=== PATIENT | female | born 1960 | race Caucasian/White ===

== ENCOUNTER 2016-09-05 05:01 | Emergency (ER) | payer OTHER ==
[2016-09-05] MEDS ORDERED: Sodium Chloride 0.9% 500 ML ONE (05:12)
[2016-09-05 05:39] LABS: #Basophils 0.1 thou/uL (0.0-0.2); #Eosinphils 0.1 thou/uL (0.0-0.7); #Lymphocytes 1.2 thou/uL (1.20-3.40); #Monocytes 0.7 thou/uL (0.11-0.59); #Neutrophils 8.2 thou/uL (1.40-6.50); %Basophils 1.2 % (0.0-1.0); %Lymphocytes 11.3 % (21.0-51.0); %Monocytes 6.8 % (0.0-10.0); Hematocrit 42.3 % (36.0-47.0); Mean Platelet Volume 6.5 fL (7.4-10.4); Red Blood Cell (RBC) Count 4.78 mill/uL (4.20-5.40); White Blood Cell (WBC) Count 10.3 thou/uL (4.8-10.8)
[2016-09-05] MEDS ORDERED: Ondansetron HCl/PF 4 MG/2 ML Vial ONE (05:42)
[2016-09-05] MEDS ORDERED: Ciprofloxacin Lactate/D5W 400 mg/200 ml Premix ONE (05:42)
[2016-09-05] MEDS ORDERED: metroNIDAZOLE 500 MG/100 ML BAG ONE (05:43)
[2016-09-05 05:53] LABS: ALT (SGPT) 20 U/L (0-55); AST (SGOT) 19 U/L (5-34); Alkaline Phosphatase 74 U/L (40-150); Anion Gap 13 mmol/L (10-20); BUN (Urea Nitrogen) 8 mg/dL (9.8-20.1); Calc. Creatinine Clearance 0 mL/min (70-130); Calcium 9.2 mg/dL (7.8-10.44); Carbon Dioxide 22 mmol/L (22-29); Chloride 108 mmol/L (98-107); Estimated GFR-MDRD 80; Lipase 17 U/L (8-78); Protein, Total 7.2 g/dL (6.0-8.3)
[2016-09-05 06:02] LABS: Bilirubin, Total 0.7 mg/dL (0.2-1.2)
--- NOTE | 2016-09-05 08:06 | ERRECORD ---
[facility] EMERGENCY RECORD HPI ABDOMINAL PAIN (05:43 BPIC) CHIEF COMPLAINTS: Patient presents for evaluation of abdominal pain. HISTORIAN: History provided by patient, pt with hx of diverticulitis, latest flare up in July who has been having diarrhea, llq abdominal pain and nausea similar to her typical diverticulitis. she had a ct scan showing uncomplicated diverticulitis early July and was placed on abx. she put herself on a liquid diet since yesterday, but pain has continued to worsen. denies fever. pain is sharp no radiation and is similar to prior episodes. ROS (05:45 BPIC) CONSTITUTIONAL: Negative constitutional review of systems, Historian denies chills, denies fever. EYES: Negative eye review of systems. ENT: Negative ears, nose, throat review of systems. CARDIOVASCULAR: Negative cardiovascular review of systems, Historian denies chest pain, denies palpitations. RESPIRATORY: Negative respiratory review of systems, Historian denies cough, denies shortness of breath. GI: Historian reports abdominal pain, reports diarrhea, reports nausea. MUSCULOSKELETAL: Negative musculoskeletal review of systems. SKIN: Negative skin review of systems. NEUROLOGIC: Negative neurologic review of systems. ENDOCRINE: Negative endocrine review of systems. HEMO/LYMPHATIC: Normal hematologic/lymphatic system review. PSYCHIATRIC: Negative psychiatric review of systems. NOTES: All other ROS is negative except as listed in HPI. PAST MEDICAL HISTORY MEDICAL HISTORY: Past medical history includes endocrine disease, hypothyroidism, Flu vaccine not up to date, Tetanus not up to date, Pneumococcal vaccine not up to date, Notes: Chronic back pain, Past medical history includes history of hyperlipidemia. (05:10 EPIE) FEMALE SURGICAL HISTORY: Surgical history of carpal tunnel surgery, D AND C, Surgical history of appendectomy, Surgical history of tonsillectomy, back sx. (05:10 EPIE) PSYCHIATRIC HISTORY: No previous psychiatric history. (05:10 EPIE) SOCIAL HISTORY: Lives at home, with family, Patient denies alcohol use, Patient denies drug use, Patient has no smoking history. (05:10 EPIE) NOTES: I have reviewed and agree with the PMH/PSxH/FamHx/SocHx obtained by the nurse. (05:45 BPIC) KNOWN ALLERGIES No Known Drug Allergies &a-1R&a+25V*p+0X*y8697H*c202B*c15G*c2P*p-0X&a-25V&a+1R Name: Stephania Gurrola : 1960 F55 MedRec: [id number] AcctNum: [id number] Prepared: Eliz Sep 05, 2016 08:01 by Interface Page 1 of 4 pMD [facility] EMERGENCY RECORD CURRENT MEDICATIONS levothyroxine: TABLET : Strength - 75 mcg : ORAL Patient Dose: 50 mcg Oral once a day. (05:08 EPIE) omeprazole: CAPSULE,DELAYED RELEASE (ENTERIC COATED) : Strength - 40 mg : ORAL Patient Dose: UNK. (05:09 EPIE) VITAL SIGNS VITAL SIGNS: BP: 149/71, Pulse: 92, Resp: 20 (Non-Labored), Pain: 8, O2 sat: 96 on Room Air, Time: 09/05/2016 05:11. (05:11 EPIE) Temp: 98.1 (Oral), Time: 09/05/2016 05:29. (05:29 EPIE) BP: 134/63, Pulse: 85, Resp: 20 (Non-Labored), O2 sat: 97 on Room Air, Time: 09/05/2016 05:30. (05:30 EPIE) BP: 126/79, Pulse: 79, Resp: 20 (Non-Labored), O2 sat: 95 on Room Air, Time: 09/05/2016 06:00. (06:00 EPIE) Pain: 1, Time: 09/05/2016 06:21. (06:21 EPIE) BP: 133/70, Pulse: 76, Resp: 18 (Non-Labored), Pain: 1, O2 sat: 95 on Room Air, Time: 09/05/2016 06:30. (06:30 EPIE) PHYSICAL EXAM (05:45 BPIC) CONSTITUTIONAL: Vital signs reviewed, Patient appears non toxic, Patient alert and oriented to person, place and time, Pt is in no apparent distress. HEAD: Head exam included findings of head atraumatic, normocephalic. EYES: Eye exam included findings of eyelids normal to inspection, Pupils equally round and reactive to light, Extraocular muscles intact. ENT: ENT exam normal, Nose exam normal, no nasal deformity, no bleeding from nares, Pharynx exam normal, Mouth exam normal, mucous membranes moist. NECK: Neck exam included findings of normal range of motion, Trachea midline. RESPIRATORY CHEST: Respiratory and chest exam normal, Breath sounds clear, No wheezing, No rales, Chest exam included findings of chest movement symmetrical, Chest expansion equal. CARDIOVASCULAR: Cardiovascular assessment normal, Cardiovascular exam included findings of heart rate regular rate and rhythm, Heart sounds normal. ABDOMEN FEMALE: Abdominal exam included findings of abdomen moderately tender in llq and mildly tender in suprapubic area, Bowel sounds normal, no mass, no pulsatile masses, no peritoneal signs. BACK: Back exam included findings of normal inspection, range of motion normal, no costovertebral angle tenderness. UPPER EXTREMITY: Upper extremity exam included findings of inspection normal, Range of motion normal. LOWER EXTREMITY: Lower extremity exam included findings of &a-1R&a+25V*p+0X*y4748Z*c202B*c15G*c2P*p-0X&a-25V&a+1R Name: Stephania Gurrola : 1960 F55 MedRec: [id number] AcctNum: [id number] Prepared: Eliz Sep 05, 2016 08:01 by Interface Page 2 of 4 pMD [facility] EMERGENCY RECORD inspection normal, Range of motion normal. NEURO: Neuro exam findings include patient oriented to person, place and time, Speech normal, no focal motor deficits, no focal sensory deficits. SKIN: Skin exam included findings of skin warm, dry, and normal in color. LYMPHATIC: Lymphatic exam normal. PSYCHIATRIC: Psychiatric exam included findings of patient oriented to person place and time, Normal affect. MEDICATION ADMINISTRATION SUMMARY Drug Name: Flagyl RTU intravenous piggyback, Dose Ordered: 500 mg, Route: IV Piggy Back, Status: Given, Time: 06:55 09/05/2016, Drug Name: Cipro I.V., Dose Ordered: 400 mg, Route: IV Fluid Infusion, Status: Given, Time: 05:51 09/05/2016, Drug Name: morphine injection, Dose Ordered: 4 mg, Route: IV Push, Status: Given, Time: 05:49 09/05/2016, Drug Name: Zofran intravenous, Dose Ordered: 4 mg, Route: IV Push, Status: Given, Time: 05:47 09/05/2016, Drug Name: *Normal Saline, Dose Ordered: 500 mL, Route: IV Fluid Infusion, Status: Given, Time: 05:28 09/05/2016, *Additional information available in notes, Detailed record available in Medication Service section. PROBLEM LIST No recorded problems DIAGNOSIS (06:55 BPIC) FINAL: PRIMARY: diverticulitits, ADDITIONAL: Abdominal Pain. PRESCRIPTION Cipro tablet: TABLET : 500 mg : ORAL : Quantity: 500 Unit: mg Route: ORAL Schedule: 2 times a day Dispense: 14 Unit: tab(s) May substitute. Refills: No Refills . (06:55 BPIC) NOTES: No Refills. (06:55 BPIC) Flagyl: TABLET : 500 mg : ORAL : Quantity: 500 Unit: mg Route: ORAL Schedule: 2 times a day Dispense: 14 Unit: tab(s) May substitute. Refills: No Refills . (06:55 BPIC) NOTES: No Refills. (06:55 BPIC) traMADol: TABLET : 50 mg : ORAL : Quantity: 50 Unit: mg Route: ORAL Schedule: every 6 hours PRN Dispense: 20 Unit: tab(s) May substitute. Refills: No Refills . (06:55 BPIC) NOTES: ^s=No Refills No Refills. (06:55 BPIC) Zofran ODT: TABLET,DISINTEGRATING : 4 mg : ORAL : Quantity: 1 Unit: tab(s) Route: ORAL Schedule: every 8 hours PRN Dispense: &a-1R&a+25V*p+0X*d8227L*c202B*c15G*c2P*p-0X&a-25V&a+1R Name: Stephania Gurrola Nicholas : 1960 F55 MedRec: [id number] AcctNum: [id number] Prepared: Eliz Sep 05, 2016 08:01 by Interface Page 3 of 4 pMD [facility] EMERGENCY RECORD 15 Unit: tab(s) May substitute. Refills: No Refills . (07:49 [facility]) NOTES: No Refills. (07:49 [facility]) DISPOSITION PATIENT: Disposition Type: Discharge, Disposition: *Discharge Home, Condition: Good. (06:55 [facility]) Patient left the department. (07:59 [facility]) [place]: [facility]=MD Aaron, Jus [facility]=NIGEL Fields, Mile [facility]=MD Maryanne, Cate [facility]=NIGEL Luciano, Norma &a-1R&a+25V*p+0X*q2772P*c202B*c15G*c2P*p-0X&a-25V&a+1R Name: Stephania Gurrola Nicholas : 1960 F55 MedRec: [id number] AcctNum: [id number] Prepared: Eliz Sep 05, 2016 08:01 by Interface Page 4 of 4 pMD MTDD
--- NOTE | 2016-09-05 08:09 | PICIS ---
[facility] EMERGENCY RECORD TRIAGE (FriSep 05, 2016 05:06 EPIE) PATIENT: NAME: Stephania Gurrola, AGE: 55, GENDER: female, : Fri1960, TIME OF GREET: FriSep 05, 2016 05:02, PREFERRED LANGUAGE: Yoruba, ETHNICITY: Not or , ECODE BILLING MAP: [facility], SSN: [id number], Zip Code: [address], KG WEIGHT: 56.7 (est.), PHONE: , , , PERSON ID: [id number], PCP: MD Donaldson Jacques. (FriSep 05, 2016 05:06 EPIE) TRIAGE NOTES: Pt states that she thinks she has diverticulitis. Pt reports bad cramps. Reports diarrhea yesterday but not today. (FriSep 05, 2016 05:06 EPIE) COMPLAINT: DIVERTICULITIS FLARE UP. (FriSep 05, 2016 05:06 EPIE) ADMISSION: URGENCY: 3 Urgent, ADMISSION SOURCE: Home, TRANSPORT: CAR, BED: TRIAGE. (FriSep 05, 2016 05:06 EPIE) TRIAGE SCREENING: Patient denies suicidal ideation, Patient denies presence of domestic violence. (05:10 EPIE) TREATMENTS IN PROGRESS: Treatments given Prehospital: none. (05:10 EPIE) PROVIDERS: TRIAGE NURSE: Mile Fields RN. (FriSep 05, 2016 05:06 EPIE) PREVIOUS VISIT ALLERGIES: No Known Drug Allergies. (FriSep 05, 2016 05:06 EPIE) No Known Drug Allergies. (05:10 EPIE) KNOWN ALLERGIES No Known Drug Allergies CURRENT MEDICATIONS levothyroxine: TABLET : Strength - 75 mcg : ORAL Patient Dose: 50 mcg Oral once a day. (05:08 EPIE) omeprazole: CAPSULE,DELAYED RELEASE (ENTERIC COATED) : Strength - 40 mg : ORAL Patient Dose: UNK. (05:09 EPIE) VITAL SIGNS VITAL SIGNS: BP: 149/71, Pulse: 92, Resp: 20 (Non-Labored), Pain: 8, O2 sat: 96 on Room Air, Time: 09/05/2016 05:11. (05:11 EPIE) Temp: 98.1 (Oral), Time: 09/05/2016 05:29. (05:29 EPIE) BP: 134/63, Pulse: 85, Resp: 20 (Non-Labored), O2 sat: 97 on Room Air, Time: 09/05/2016 05:30. (05:30 EPIE) BP: 126/79, Pulse: 79, Resp: 20 (Non-Labored), O2 sat: 95 on Room Air, Time: 09/05/2016 06:00. (06:00 EPIE) Pain: 1, Time: 09/05/2016 06:21. (06:21 EPIE) BP: 133/70, Pulse: 76, Resp: 18 (Non-Labored), Pain: 1, O2 sat: 95 on Room Air, Time: 09/05/2016 06:30. (06:30 EPIE) NURSING ASSESSMENT: ABDOMEN (05:31 EPIE) CONSTITUTIONAL: Patient arrives ambulatory, Gait steady, History &a-1R&a+25V*p+0X*e2198G*c202B*c15G*c2P*p-0X&a-25V&a+1R Name: Stephania Gurrola : 1960 F55 MedRec: [id number] AcctNum: [id number] Prepared: Eliz Sep 05, 2016 08:07 by Interface Page 1 of 9 pMD [facility] EMERGENCY RECORD obtained from patient, Patient appears comfortable, Patient cooperative, Patient alert, Oriented to person, place and time, Skin warm, Skin dry, Skin normal in color, Mucous membranes pink, Mucous membranes moist, Patient is well-groomed, Pt states that she thinks she has diverticulitis. Pt reports bad cramps. Reports diarrhea yesterday but not today. PAIN: aching pain, cramping pain, diffusely, Onset of pain 09/04/2016, intermittent, on a scale 0-10 patient rates pain as 8. ABDOMEN: Abdomen assessment findings include abdomen symmetrical, Abdomen soft, tender, diffusely, Associated with nausea, no associated vomiting, Associated with diarrhea, Number of episodes: reports diarrhea yesterday. GENITOURINARY FEMALE: no associated urinary complaints. NURSING ASSESSMENT: FALL RISK (05:36 EPIE) FALL RISK: Fall risk assessment findings include: no history of falls (0), No bed rest greater than 2 days (0), No use of level of consciousness altering agents with mentation or cognitive changes (0), No change in blood pressure (0), No sensory deficits (0), No impaired mobility (0), No neurologic diagnosis (0), No elimination problems (0), No confusion (0), Total score 0, No risk for fall. NURSING ASSESSMENT: SKIN (05:36 EPIE) SKIN: Skin assessment findings include skin warm, Skin dry, Skin normal in color. NURSING PROCEDURE: DISCHARGE NOTE (07:56 [facility]) DISCHARGE: Patient discharged to home, ambulating without assistance, family driving, accompanied by //partner, Discharge instructions given to patient, Simple or moderate discharge teaching performed, by NIGEL Green, Patient treated and evaluated by physician. BELONGINGS: Belongings and valuables with patient upon arrival to the Emergency Department include:, Belongings and valuables with patient at time of discharge include:. SAFETY: Side rails up, Cart/Stretcher in lowest position, Family at bedside, Call light within reach, Hospital ID band on. NURSING PROCEDURE: IV PATIENT IDENITIFIER: Patient actively involved in identification process, Patient's identity verified by patient stating name, Patient's identity verified by hospital ID bracelet. (05:20 EPIE) IV SITE 1: IV established, to the left antecubital, using a 20 gauge catheter, in one attempt, IV site prepped with chloroprep, Saline lock established, Flushed with normal saline (mls): 10, Labs drawn at time of placement, labeled in the presence of the patient &a-1R&a+25V*p+0X*k8834M*c202B*c15G*c2P*p-0X&a-25V&a+1R Name: Stephania Gurrola : 1960 F55 MedRec: [id number] AcctNum: [id number] Prepared: [facility] Sep 05, 2016 08:07 by Interface Page 2 of 9 pMD [facility] EMERGENCY RECORD and sent to lab. (05:20 EPIE) FOLLOW-UP SITE 1: After procedure, no drainage at IV site, After procedure, no swelling at IV site, After procedure, no redness at IV site. (05:20 EPIE) After procedure, no drainage at IV site, After procedure, no swelling at IV site, After procedure, no redness at IV site, IV discontinued, due to patient being discharged, catheter intact. (07:56 [facility]) NURSING PROCEDURE: NURSE NOTES NURSES NOTES: Notes: Patient resting with RR even and unlabored. No new complaints at this time. IV fluids infusing. Warm blanket given for comfort. Awaiting lab results. (05:30 EPIE) Notes: Patient resting with RR even and unlabored. No new complaints at this time. IV antibiotic infusing. Lights dimmed for comfort. (05:54 EPIE) Notes: Patient resting withRR even and unlabored. No new complaints at this time. IV antibiotic infusing. Pt reports nausea has decreased and pain has decreased to a 1/10 at this time. (06:21 EPIE) Assistance offered to patient, Notes: iv infusing, aware will be discharged in an hour. (07:05 BDON) VITAL SIGNS: Pain: 1. (06:21 EPIE) ORDER DETAILS Order Name: CBC with Differential, Status: Active, Time: 05:08 09/05/2016, User: LEON, - Ordered for: MD Walker Bryan, - Entered by: NIGEL Fields, [facility] Sep 05, 2016 05:08, - Quantity: 1, Order Name: Comprehensive Metabolic Panel, Status: Active, Time: 05:08 09/05/2016, User: LEON, - Ordered for: MD Walker Bryan, - Entered by: NIGEL Fields, [facility] Sep 05, 2016 05:08, - Quantity: 1, Order Name: Lipase, Status: Active, Time: 05:08 09/05/2016, User: LEON, - Ordered for: MD Walker Bryan, - Entered by: NIGEL Fields, [facility] Sep 05, 2016 05:08, - Quantity: 1, Order Name: SALINE LOCK, Status: Done, Time: 05:27 09/05/2016, User: LEON, - Ordered for: MD Walker Bryan, - Entered by: NIGEL Fields, [facility] Sep 05, 2016 05:26, - Quantity: 1. MEDICATION ADMINISTRATION SUMMARY Drug Name: Ramón RTU intravenous piggyback, Dose Ordered: 500 mg, Route: IV Piggy Back, Status: Given, Time: 06:55 09/05/2016, Drug Name: Cipro I.V., Dose Ordered: 400 mg, Route: IV Fluid &a-1R&a+25V*p+0X*m3550L*c202B*c15G*c2P*p-0X&a-25V&a+1R Name: Stephania Gurrola : 1960 F55 MedRec: [id number] AcctNum: [id number] Prepared: Eliz Sep 05, 2016 08:07 by Interface Page 3 of 9 pMD [facility] EMERGENCY RECORD Infusion, Status: Given, Time: 05:51 09/05/2016, Drug Name: morphine injection, Dose Ordered: 4 mg, Route: IV Push, Status: Given, Time: 05:49 09/05/2016, Drug Name: Zofran intravenous, Dose Ordered: 4 mg, Route: IV Push, Status: Given, Time: 05:47 09/05/2016, Drug Name: *Normal Saline, Dose Ordered: 500 mL, Route: IV Fluid Infusion, Status: Given, Time: 05:28 09/05/2016, *Additional information available in notes, Detailed record available in Medication Service section. MEDICATION SERVICE Cipro I.V.: Order: Cipro I.V. (ciprofloxacin lactate) - Dose: 400 mg : IV Fluid Infusion Schedule: Now Ordered by: Jus Walker MD Entered by: Jus Walker MD [facility] Sep 05, 2016 05:41 , Acknowledged by: Mile Fields RN [facility] Sep 05, 2016 05:42 Documented as given by: Leeanna Wetzel RN [facility] Sep 05, 2016 05:51 Patient, Medication, Dose, Route and Time verified prior to administration. Amount given: 400 mg, IV SITE #1 IVPB or drip, initial infusion, Premixed, IVPB mixed in: Other, IVPB mixed in: 200 ml, via primary tubing, via pump tubing, via Buretrol, at 200 ml/hr, Catheter placement confirmed via flush prior to administration, IV site without signs or symptoms of infiltration during medication administration, No swelling during administration, No drainage during administration, IV flushed after administration, Correct patient, time, route, dose and medication confirmed prior to administration, Patient advised of actions and side-effects prior to administration, Allergies confirmed and medications reviewed prior to administration, Patient in position of comfort, Side rails up, Cart in lowest position. : Follow Up : Response assessment performed, No signs or symptoms of allergic reaction noted, _IV SITE #1:_, Medication infusion discontinued, on FriSep 05, 2016 06:51, Total infusion time IV site 1 1 hour, ., Total amount infused: 200ml, IV Line flushed after administration. (06:51 EPIE) morphine injection: Order: morphine injection (morphine sulfate) - Dose: 4 mg : IV Push Ordered by: Jus Walker MD Entered by: Jus Walker MD [facility] Sep 05, 2016 05:39 , Acknowledged by: Mile Fields RN [facility] Sep 05, 2016 05:40 Documented as given by: Leeanna Wetzel RN [facility] Sep 05, 2016 05:49 Patient, Medication, Dose, Route and Time verified prior to administration. Amount given: 4 mg, IV SITE #1 IVP, subsequent different medication, Slowly, Catheter placement confirmed via flush prior to administration, IV site without signs or symptoms of infiltration during medication administration, No swelling during administration, No drainage during administration, IV flushed after administration, &a-1R&a+25V*p+0X*g3941B*c202B*c15G*c2P*p-0X&a-25V&a+1R Name: Stephania Gurrola : 1960 F55 MedRec: [id number] AcctNum: [id number] Prepared: FriSep 05, 2016 08:07 by Interface Page 4 of 9 pMD [facility] EMERGENCY RECORD Correct patient, time, route, dose and medication confirmed prior to administration, Patient advised of actions and side-effects prior to administration, Allergies confirmed and medications reviewed prior to administration, Patient in position of comfort, Side rails up, Cart in lowest position. Normal Saline: Order: Normal Saline (0.9 % sodium chloride) - Dose: 500 mL : IV Fluid Infusion Schedule: Now Notes: Read back and verified, Verbal Order Ordered by: Jus Walker MD Entered by: Mile Fields RN [facility] Sep 05, 2016 05:28 Documented as given by: Mile Fields RN [facility] Sep 05, 2016 05:28 Patient, Medication, Dose, Route and Time verified prior to administration. Amount given: 500ml, IV SITE #1 IV fluids established for hydration, IV SITE #1 into left antecubital, IV SITE #1 1st bag hung, amount 500ml hung, IV SITE #1 bolus of 500 ml established, via primary tubing, Catheter placement confirmed via flush prior to administration, IV site without signs or symptoms of infiltration during medication administration, No swelling during administration, No drainage during administration, IV flushed after administration, Correct patient, time, route, dose and medication confirmed prior to administration, Patient advised of actions and side-effects prior to administration, Allergies confirmed and medications reviewed prior to administration. : Follow Up : Response assessment performed, No signs or symptoms of allergic reaction noted, _IV SITE #1:_, IV fluid infusion discontinued, on Eliz Sep 05, 2016 05:55, 30 minutes, ., Total amount infused: 500ml, IV Line flushed after administration. (05:55 EPIE) Zofran intravenous: Order: Zofran intravenous (ondansetron HCl) - Dose: 4 mg : IV Push Schedule: Now Ordered by: Jus Walker MD Entered by: Jus Walker MD [facility] Sep 05, 2016 05:42 , Acknowledged by: Mile Fields RN [facility] Sep 05, 2016 05:43 Documented as given by: Leeanna Wetzel RN [facility] Sep 05, 2016 05:47 Patient, Medication, Dose, Route and Time verified prior to administration. Amount given: 4 mg, IV SITE #1 IVP, initial medication, Slowly, Catheter placement confirmed via flush prior to administration, IV site without signs or symptoms of infiltration during medication administration, No swelling during administration, No drainage during administration, IV flushed after administration, Correct patient, time, route, dose and medication confirmed prior to administration, Patient advised of actions and side-effects prior to administration, Allergies confirmed and medications reviewed prior to administration, Patient in position of comfort, Side rails up, Cart in lowest position. &a-1R&a+25V*p+0X*v7137N*c202B*c15G*c2P*p-0X&a-25V&a+1R Name: Stephania Gurrola : 1960 F55 MedRec: [id number] AcctNum: [id number] Prepared: Eliz Sep 05, 2016 08:07 by Interface Page 5 of 9 pMD [facility] EMERGENCY RECORD HPI ABDOMINAL PAIN (05:43 BPIC) CHIEF COMPLAINTS: Patient presents for evaluation of abdominal pain. HISTORIAN: History provided by patient, pt with hx of diverticulitis, latest flare up in July who has been having diarrhea, llq abdominal pain and nausea similar to her typical diverticulitis. she had a ct scan showing uncomplicated diverticulitis early July and was placed on abx. she put herself on a liquid diet since yesterday, but pain has continued to worsen. denies fever. pain is sharp no radiation and is similar to prior episodes. ROS (05:45 BP[facility]) CONSTITUTIONAL: Negative constitutional review of systems, Historian denies chills, denies fever. EYES: Negative eye review of systems. ENT: Negative ears, nose, throat review of systems. CARDIOVASCULAR: Negative cardiovascular review of systems, Historian denies chest pain, denies palpitations. RESPIRATORY: Negative respiratory review of systems, Historian denies cough, denies shortness of breath. GI: Historian reports abdominal pain, reports diarrhea, reports nausea. MUSCULOSKELETAL: Negative musculoskeletal review of systems. SKIN: Negative skin review of systems. NEUROLOGIC: Negative neurologic review of systems. ENDOCRINE: Negative endocrine review of systems. HEMO/LYMPHATIC: Normal hematologic/lymphatic system review. PSYCHIATRIC: Negative psychiatric review of systems. NOTES: All other ROS is negative except as listed in HPI. PAST MEDICAL HISTORY MEDICAL HISTORY: Past medical history includes endocrine disease, hypothyroidism, Flu vaccine not up to date, Tetanus not up to date, Pneumococcal vaccine not up to date, Notes: Chronic back pain, Past medical history includes history of hyperlipidemia. (05:10 EPIE) FEMALE SURGICAL HISTORY: Surgical history of carpal tunnel surgery, D AND C, Surgical history of appendectomy, Surgical history of tonsillectomy, back sx. (05:10 EPIE) PSYCHIATRIC HISTORY: No previous psychiatric history. (05:10 EPIE) SOCIAL HISTORY: Lives at home, with family, Patient denies alcohol use, Patient denies drug use, Patient has no smoking history. (05:10 EPIE) NOTES: I have reviewed and agree with the PMH/PSxH/FamHx/SocHx obtained by the nurse. (05:45 BPIC) PHYSICAL EXAM (05:45 [facility]) CONSTITUTIONAL: Vital signs reviewed, Patient appears non toxic, &a-1R&a+25V*p+0X*p6135D*c202B*c15G*c2P*p-0X&a-25V&a+1R Name: Stephania Gurrola : 1960 F55 MedRec: [id number] AcctNum: [id number] Prepared: Eliz Sep 05, 2016 08:07 by Interface Page 6 of 9 pMD [facility] EMERGENCY RECORD Patient alert and oriented to person, place and time, Pt is in no apparent distress. HEAD: Head exam included findings of head atraumatic, normocephalic. EYES: Eye exam included findings of eyelids normal to inspection, Pupils equally round and reactive to light, Extraocular muscles intact. ENT: ENT exam normal, Nose exam normal, no nasal deformity, no bleeding from nares, Pharynx exam normal, Mouth exam normal, mucous membranes moist. NECK: Neck exam included findings of normal range of motion, Trachea midline. RESPIRATORY CHEST: Respiratory and chest exam normal, Breath sounds clear, No wheezing, No rales, Chest exam included findings of chest movement symmetrical, Chest expansion equal. CARDIOVASCULAR: Cardiovascular assessment normal, Cardiovascular exam included findings of heart rate regular rate and rhythm, Heart sounds normal. ABDOMEN FEMALE: Abdominal exam included findings of abdomen moderately tender in llq and mildly tender in suprapubic area, Bowel sounds normal, no mass, no pulsatile masses, no peritoneal signs. BACK: Back exam included findings of normal inspection, range of motion normal, no costovertebral angle tenderness. UPPER EXTREMITY: Upper extremity exam included findings of inspection normal, Range of motion normal. LOWER EXTREMITY: Lower extremity exam included findings of inspection normal, Range of motion normal. NEURO: Neuro exam findings include patient oriented to person, place and time, Speech normal, no focal motor deficits, no focal sensory deficits. SKIN: Skin exam included findings of skin warm, dry, and normal in color. LYMPHATIC: Lymphatic exam normal. PSYCHIATRIC: Psychiatric exam included findings of patient oriented to person place and time, Normal affect. EVENTS TRANSFER: Triage to Emergency Triage. (FriSep 05, 2016 05:06 EPIE) Emergency Triage to Emergency Room -03. (05:06 EPIE) Removed from Emergency Emergency Room -03. (07:59 [facility]) PROBLEM LIST No recorded problems DIAGNOSIS (06:55 [facility]) FINAL: PRIMARY: diverticulitits, ADDITIONAL: Abdominal Pain. &a-1R&a+25V*p+0X*e8444R*c202B*c15G*c2P*p-0X&a-25V&a+1R Name: Stephania Gurrola : 1960 F55 MedRec: [id number] AcctNum: [id number] Prepared: Eliz Sep 05, 2016 08:07 by Interface Page 7 of 9 [facility] EMERGENCY RECORD DISPOSITION PATIENT: Disposition Type: Discharge, Disposition: *Discharge Home, Condition: Good. (06:55 BPIC) Patient left the department. (07:59 [facility]) INSTRUCTION (06:55 [facility]) DISCHARGE: DIVERTICULITIS. FOLLOWUP: MD Donaldson Jacques, Family Practice, [facility], [address] [place] [id number], . SPECIAL: Thank you for choosing [facility] Emergency Department for your care today! Please follow up with your primary doctor in the next 2-3 days. Return to the emergency department with any other worsening or emergent symptoms. God bless you!. PRESCRIPTION Cipro tablet: TABLET : 500 mg : ORAL : Quantity: 500 Unit: mg Route: ORAL Schedule: 2 times a day Dispense: 14 Unit: tab(s) May substitute. Refills: No Refills . (06:55 BP[facility]) NOTES: No Refills. (06:55 BP[facility]) Flagyl: TABLET : 500 mg : ORAL : Quantity: 500 Unit: mg Route: ORAL Schedule: 2 times a day Dispense: 14 Unit: tab(s) May substitute. Refills: No Refills . (06:55 BP[facility]) NOTES: No Refills. (06:55 [facility]) traMADol: TABLET : 50 mg : ORAL : Quantity: 50 Unit: mg Route: ORAL Schedule: every 6 hours PRN Dispense: 20 Unit: tab(s) May substitute. Refills: No Refills . (06:55 BP[facility]) NOTES: ^s=No Refills No Refills. (06:55 BP[facility]) Zofran ODT: TABLET,DISINTEGRATING : 4 mg : ORAL : Quantity: 1 Unit: tab(s) Route: ORAL Schedule: every 8 hours PRN Dispense: 15 Unit: tab(s) May substitute. Refills: No Refills . (07:49 [facility]) NOTES: No Refills. (07:49 [facility]) IMAGING (07:58 [facility]) *DISCHARGE INSTRUCTIONS RECEIPT: Image captured from scanner. DISCHARGE INSTRUCTIONS RECEIPT 2: Image captured from scanner. *SUPPLY CHARGE SHEET: Image captured from scanner. RESULTS LABORATORY: CBC with Differential Collection DT: FriSep 05, 2016 05:31, White Blood Cell (WBC) Count 10.3 thou/uL, Range (4.8-10.8), Red Blood Cell (RBC) Count 4.78 mill/uL, Range (4.20-5.40), Hemoglobin 14.5 g/dL, Range (12.0-16.0), Hematocrit 42.3 %, Range (36.0-47.0), Mean Corpuscular Volume 88.5 fl, Range (81.0-99.0), &a-1R&a+25V*p+0X*g8305I*c202B*c15G*c2P*p-0X&a-25V&a+1R Name: Stephania Gurrola : 1960 F55 MedRec: [id number] AcctNum: [id number] Prepared: FriSep 05, 2016 08:07 by Interface Page 8 of 9 pMD [facility] EMERGENCY RECORD Mean Corpuscular Hemoglobin 30.3 pg, Range (27.0-31.0), Mean Corpuscular HGB CONC 34.3 g/dL, Range (32.0-36.0), *RBC Distribution Width 11.1 - L %, Range (11.5-14.5), Platelet Count 301 thou/uL, Range (130-400), *Mean Platelet Volume 6.5 - L fL, Range (7.4-10.4), *%Neutrophils 79.8 - H %, Range (42.0-75.0), *%Lymphocytes 11.3 - L %, Range (21.0-51.0), %Monocytes 6.8 %, Range (0.0-10.0), %Eosinophils 1.0 %, Range (0.0-10.0), *%Basophils 1.2 - H %, Range (0.0-1.0), *#Neutrophils 8.2 - H thou/uL, Range (1.40-6.50), #Lymphocytes 1.2 thou/uL, Range (1.20-3.40), *#Monocytes 0.7 - H thou/uL, Range (0.11-0.59), #Eosinphils 0.1 thou/uL, Range (0.0-0.7), #Basophils 0.1 thou/uL, Range (0.0-0.2). (05:43 [facility]) Lipase Collection DT: FriSep 05, 2016 05:31, Lipase 17 U/L, Range (8-78). (06:54 BP[facility]) Comprehensive Metabolic Panel Collection DT: FriSep 05, 2016 05:31, Sodium 139 mmol/L, Range (136-145), Potassium 4.0 mmol/L, Range (3.5-5.1), *Chloride 108 - H mmol/L, Range (98-107), Carbon Dioxide 22 mmol/L, Range (22-29), Anion Gap 13 mmol/L, Range (10-20), *BUN (Urea Nitrogen) 8 - L mg/dL, Range (9.8-20.1), Creatinine 0.76 mg/dL, Range (0.6-1.1), Estimated GFR-MDRD 80 , Reference Range for Estimated GFR: Greater than 90, mL/min/1.73 m2 NOTE: The MDRD equation has not been validated for use, with the elderly (over 70 years of age), women, patients with, serious comorbid condition or persons with extremes of body size, muscle, mass, or nutritional status. , *Glucose 106 - H mg/dL, Range (70-105), Calcium 9.2 mg/dL, Range (7.8-10.44), Bilirubin, Total 0.7 mg/dL, Range (0.2-1.2), Protein, Total 7.2 g/dL, Range (6.0-8.3), NOTE: Plasma values are generally 0.3 to 0.5 g/dL higher than serum values, due to the presence of fibrinogen. , Albumin 4.2 g/dL, Range (3.5-5.0), Globulin 3.0 g/dL, Range (2.4-3.5), Alb/Glob Ratio 1.4 g/dL, Range (1.2-2.2), Alkaline Phosphatase 74 U/L, Range (40-150), AST (SGOT) 19 U/L, Range (5-34), ALT (SGPT) 20 U/L, Range (0-55). (06:54 [facility]) Sandoval: BDON=NIGEL Corbett, Lindsey BPIC=MD Aaron, Jus EPIE=NIGEL Fields, Mile DICKERSON=MD Maryanne, Cate [facility]=NIGEL Luciano, Norma &a-1R&a+25V*p+0X*k8464Z*c202B*c15G*c2P*p-0X&a-25V&a+1R Name: Stephania Gurrola : 1960 F55 MedRec: [id number] AcctNum: [id number] Prepared: Eliz Sep 05, 2016 08:07 by Interface Page 9 of 9 pMD MTDD
== END 2016-09-05 07:55 | disposition home or self-care (01) ==
LOC: NAV ERS 05:01
DX: K57.92 Diverticulitis of intestine, part unspecified, without perforation or abscess without bleeding (principal); E03.9 Hypothyroidism, unspecified; E78.5 Hyperlipidemia, unspecified
CPT/HCPCS: 80053; 83690; 85025; 96365; 96367; 96375; J0744; J2270; J2405; J7050

== ENCOUNTER 2019-02-22 13:00 | Emergency (ER) | payer OTHER ==
[2019-02-22] MEDS ORDERED: Ketorolac Tromethamine 60 MG/2 ML VIAL ONE (13:49)
--- NOTE | 2019-02-22 13:58 | ULT ---
Venous duplex sonogram right lower extremity HISTORY: Right leg pain and edema. FINDINGS: The right common femoral vein and greater saphenous junction were evaluated along with the femoral, deep femoral, popliteal, and posterior tibial veins. There is good color and spectral Doppler flow, compression, and augmentation. IMPRESSION: No sonographic evidence of DVT within the right lower extremity.
== END 2019-02-22 14:09 | disposition home or self-care (01) ==
LOC: NAV ERS 13:00
DX: M79.661 Pain in right lower leg (principal); E03.9 Hypothyroidism, unspecified; E78.5 Hyperlipidemia, unspecified; Z87.891 Personal history of nicotine dependence; Z79.899 Other long term (current) drug therapy
CPT/HCPCS: 96372; J1885

== ENCOUNTER 2024-04-29 08:00 | Emergency (ER) | payer OTHER ==
[2024-04-29] MEDS ORDERED: Sodium Chloride 0.9% 1,000 ML ONE (08:07)
[2024-04-29] MEDS ORDERED: Ondansetron PF 4 MG/2 ML Vial ONE (08:07)
[2024-04-29] MEDS ORDERED: fentaNYL 50 mcg/mL 1 mL Vial ONE ×2 (08:07→08:47)
[2024-04-29 08:15] LABS: #Basophils 0.1 thou/uL (0.0-0.2); #Eosinphils 0.4 thou/uL (0.0-0.7); #Lymphocytes 2.1 thou/uL (1.20-3.40); #Monocytes 0.6 thou/uL (0.11-0.59); #Neutrophils 3.2 thou/uL (1.40-6.50); %Basophils 2.3 % (0.0-1.0); %Eosinophils 5.9 % (0.0-10.0); %Lymphocytes 33.5 % (21.0-51.0); %Monocytes 8.7 % (0.0-10.0); %Neutrophils 49.6 % (42.0-75.0); Hematocrit 43.2 % (36.0-47.0); Hemoglobin 14.2 g/dL (12.0-16.0); Mean Corpuscular HGB CONC 32.9 g/dL (32.0-36.0); Mean Corpuscular Hemoglobin 29.5 pg (27.0-31.0); Mean Corpuscular Volume 89.6 fl (78.0-98.0); Mean Platelet Volume 6.1 fL (7.4-10.4); Platelet Count 330 10x3/uL (130-400); RBC Distribution Width 11.3 % (11.5-14.5); Red Blood Cell (RBC) Count 4.82 mill/uL (4.20-5.40); White Blood Cell (WBC) Count 6.4 10x3/uL (4.8-10.8)
[2024-04-29 08:20] LABS: INR-International Normal Ratio 0.9
[2024-04-29 08:21] LABS: PTT 26.6 sec (22.9-36.1)
[2024-04-29 08:29] LABS: ALT (SGPT) 23 U/L (8-55); AST (SGOT) 23 U/L (5-34); Albumin 4.2 g/dL (3.4-4.8); Alkaline Phosphatase 65 U/L (40-110); Anion Gap 14 mmol/L (10-20); BUN (Urea Nitrogen) 12 mg/dL (9.8-20.1); Bilirubin, Total 0.5 mg/dL (0.2-1.2); Calc. Creatinine Clearance 0 mL/min (70-130); Calcium 9.4 mg/dL (7.8-10.44); Carbon Dioxide 23 mmol/L (23-31); Chloride 103 mmol/L (98-107); Estimated GFR 81; Glucose 123 mg/dL (80-115); Potassium 4.4 mmol/L (3.5-5.1); Protein, Total 7.2 g/dL (5.8-8.1); Sodium 136 mmol/L (136-145)
[2024-04-29] MEDS ORDERED: Boostrix 0.5 ML (Tdap) VIAL (>/=7 yrs of age) ONE (09:33)
[2024-04-29] MEDS ORDERED: Acetaminophen 500 MG TAB ONE (09:33)
== END 2024-04-29 09:55 | disposition home or self-care (01) ==
LOC: NAV ERS 08:00
DX: S62.662A Nondisplaced fracture of distal phalanx of right middle finger, initial encounter for closed fracture (principal); S90.02XA Contusion of left ankle, initial encounter; S60.211A Contusion of right wrist, initial encounter; S50.11XA Contusion of right forearm, initial encounter; E03.9 Hypothyroidism, unspecified; I10 Essential (primary) hypertension; E78.5 Hyperlipidemia, unspecified; W55.22XA Struck by cow, initial encounter
CPT/HCPCS: 71045; 80053; 83605; 85025; 85610; 85730; 90471; 90715; 94760; 96374; 96375; J2405; J3010; J7030